=== PATIENT | male | born 1975 | race Caucasian/White ===

== ENCOUNTER 2022-08-04 08:17 | Outpatient (OUT) | payer OTHER, SELFPAY ==
[2022-08-04 08:56] LABS: Basophils Absolute Auto 0.1 10^3/uL (0.0-0.1); Basophils Percent Auto 0.9 % (0.2-2.0); Eosinophils Absolute Auto 0.2 10^3/uL (0.0-0.7); Eosinophils Percent Auto 2.8 % (0.9-7.0); Hematocrit 46.5 % (42.0-54.0); Hemoglobin 15.5 g/dL (14.0-18.0); Immature Granulocytes Abs Auto 0.03 10^3/uL (0.00-0.03); Immature Granulocytes Pct Auto 0.5 % (0.0-0.5); Lymphocytes Absolute Auto 1.7 10^3/uL (1.2-3.8); Lymphocytes Percent Auto 30.5 % (20.5-60.0); Mean Corpuscular HGB Conc 33.3 g/dL (29.9-35.2); Mean Corpuscular Hemoglobin 29.9 pg (25.9-34.0); Mean Corpuscular Volume 89.8 fL (80.0-94.0); Mean Platelet Volume 9.8 fL (9.5-13.5); Monocytes Absolute Auto 0.4 10^3/uL (0.3-0.8); Monocytes Percent Auto 7.8 % (1.7-12.0); Neutrophils Absolute Auto 3.3 10^3/uL (1.4-6.5); Neutrophils Percent Auto 57.5 % (43.0-75.0); Platelet Count 250 10^3/uL (150-450); Red Blood Count 5.18 10^6/uL (4.70-6.10); Red Cell Distribution Width 11.9 % (11.0-15.0); White Blood Count 5.7 10^3/uL (4.0-11.0)
[2022-08-04 09:11] LABS: Alanine Aminotransferase 38 U/L (16-63); Albumin Globulin Ratio 0.9; Albumin Level 3.7 g/dL (3.4-5.0); Alkaline Phosphatase 78 U/L (46-116); Aspartate Amino Transferase 20 U/L (15-37); BUN Creatinine Ratio 12.2; Bilirubin Total 0.7 mg/dL (0.2-1.0); Calcium 8.9 mg/dL (8.5-10.1); Carbon Dioxide 29.5 mmol/L (21.0-32.0); Chloride 104 mmol/L (98-107); Chol HDL Ratio 4.6; Cholesterol 184 mg/dL (<=200); Estimated GFR (African America >60 (>=60); Estimated GFR (Non-African Ame >60 (>=60); Globulin 3.9 g/dL; Glucose 102 mg/dL (74-106); HDL Cholesterol 40 mg/dL (40-60); Potassium 4.5 mmol/L (3.5-5.1); Sodium 139 mmol/L (136-145); Total Protein 7.6 g/dL (6.4-8.2); Triglycerides 95 mg/dL (<=150)
== END 2022-08-04 08:18 ==
LOC: LAB 08:20
PROVIDERS: PCP Internal Medicine; Visit Provider Internal Medicine
DX: Z00.00 Encounter for general adult medical examination without abnormal findings (principal)
CPT/HCPCS: 36415; 80053; 80061; 85025

== ENCOUNTER 2023-07-23 09:01 | Outpatient (OUT) | payer OTHER, BC, SELFPAY ==
[2023-07-23 09:42] LABS: Basophils Absolute Auto 0.1 10^3/uL (0.0-0.1); Basophils Percent Auto 1.2 % (0.2-2.0); Eosinophils Absolute Auto 0.1 10^3/uL (0.0-0.7); Eosinophils Percent Auto 2.7 % (0.9-7.0); Hematocrit 44.1 % (42.0-54.0); Hemoglobin 14.6 g/dL (14.0-18.0); Immature Granulocytes Abs Auto 0.03 10^3/uL (0.00-0.03); Immature Granulocytes Pct Auto 0.6 % (0.0-0.5); Lymphocytes Absolute Auto 1.8 10^3/uL (1.2-3.8); Lymphocytes Percent Auto 34.2 % (20.5-60.0); Mean Corpuscular HGB Conc 33.1 g/dL (29.9-35.2); Mean Corpuscular Hemoglobin 29.9 pg (25.9-34.0); Mean Corpuscular Volume 90.4 fL (80.0-94.0); Mean Platelet Volume 9.7 fL (9.5-13.5); Monocytes Absolute Auto 0.5 10^3/uL (0.3-0.8); Monocytes Percent Auto 8.8 % (1.7-12.0); Neutrophils Absolute Auto 2.7 10^3/uL (1.4-6.5); Neutrophils Percent Auto 52.5 % (43.0-75.0); Platelet Count 253 10^3/uL (150-450); Red Blood Count 4.88 10^6/uL (4.70-6.10); Red Cell Distribution Width 11.7 % (11.0-15.0); White Blood Count 5.1 10^3/uL (4.0-11.0)
[2023-07-23 12:25] LABS: Alanine Aminotransferase 35 U/L (16-63); Albumin Level 3.7 g/dL (3.4-5.0); Alkaline Phosphatase 75 U/L (46-116); Anion Gap 12.5; Aspartate Amino Transferase 20 U/L (15-37); BUN Creatinine Ratio 12.6; Bilirubin Total 0.7 mg/dL (0.2-1.0); Carbon Dioxide 29.3 mmol/L (21.0-32.0); Chloride 105 mmol/L (98-107); Chol HDL Ratio 4.1; Cholesterol 173 mg/dL (<=200); Estimated GFR (African America >60 (>=60); Estimated GFR (Non-African Ame >60 (>=60); Globulin 3.6 g/dL; Glucose 97 mg/dL (74-106); HDL Cholesterol 42 mg/dL (40-60); LDL Cholesterol Calculated 115.2 mg/dL; Potassium 4.8 mmol/L (3.5-5.1); Sodium 142 mmol/L (136-145); Total Protein 7.3 g/dL (6.4-8.2); Triglycerides 79 mg/dL (<=150); VLDL CHOLESTEROL 15.8 mg/dL
== END 2023-07-23 09:02 | disposition home or self-care (01) ==
LOC: LAB 09:05
PROVIDERS: PCP Internal Medicine; Visit Provider Internal Medicine
DX: Z00.00 Encounter for general adult medical examination without abnormal findings (principal)
CPT/HCPCS: 36415; 80053; 80061; 85025

== ENCOUNTER 2024-08-27 08:04 | Outpatient (OUT) | payer OTHER, BC, SELFPAY ==
[2024-08-27 08:26] LABS: Hematocrit 45.1 % (42.0-54.0); Hemoglobin 15.2 g/dL (14.0-18.0); Immature Granulocytes Abs Auto 0.04 10^3/uL (0.00-0.03); Immature Granulocytes Pct Auto 0.7 % (0.0-0.5); Lymphocytes Absolute Auto 1.8 10^3/uL (1.2-3.8); Mean Corpuscular HGB Conc 33.7 g/dL (29.9-35.2); Mean Corpuscular Hemoglobin 30.9 pg (25.9-34.0); Mean Corpuscular Volume 91.7 fL (80.0-94.0); Platelet Count 233 10^3/uL (150-450); Red Blood Count 4.92 10^6/uL (4.70-6.10); White Blood Count 5.7 10^3/uL (4.0-11.0)
[2024-08-27 08:47] LABS: Alanine Aminotransferase 27 U/L (16-63); Albumin Globulin Ratio 1.1; Albumin Level 3.7 g/dL (3.4-5.0); Alkaline Phosphatase 68 U/L (46-116); Anion Gap 12.8; Aspartate Amino Transferase 15 U/L (15-37); Blood Urea Nitrogen 12.0 mg/dL (7.0-18.0); Calcium 9.0 mg/dL (8.5-10.1); Carbon Dioxide 29.6 mmol/L (21.0-32.0); Chloride 107 mmol/L (98-107); Cholesterol 170 mg/dL (<=200); Estimated GFR (African America >60 (>=60 mL/min/1.73m^2); Estimated GFR (Non-African Ame >60 (>=60 mL/min/1.73m^2); Globulin 3.3 g/dL; Glucose 97 mg/dL (74-106); HDL Cholesterol 45 mg/dL (40-60); Potassium 4.4 mmol/L (3.5-5.1); Sodium 145 mmol/L (136-145); Total Protein 7.0 g/dL (6.4-8.2); Triglycerides 88 mg/dL (<=150); VLDL CHOLESTEROL 17.6 mg/dL
--- OUTSIDE RECORDS SUMMARY | 2024-08-27 17:59 | XMS_ITS | CCD ---
Author Organization [facility] Care Team Providers Care Guide Dog Mobility Instructor Name Role Phone DR WILBER FELTON Attending Unavailable JOSE FRANCISCO, DR LANGE Consulting Unavailable JOSE FRANCISCO, DR LANGE Primary Care Unavailable JOSE FRANCISCO, DR LANGE Admitting Unavailable Wilber Felton Unavailable Hector Pearce Unavailable DO Wilber Felton Primary Care Provider [phone] MD José Miguel Imtasha Attending Provider Wilber Felton Primary Care Unavailable Asaad Imtasha Attending Unavailable Asaad, Imad Admitting Unavailable Allergies Allergy Classification Reported Allergen(s) Allergy Type Date of Onset Reaction(s) Facility (1 source) patient allergy list reviewed by nurse or physicia Propensity to adverse reactions 9 Comment:Done RuffaloCODY Other Medications Current Medications Medication Drug Class(es) Dates Sig (Normalized) Sig (Original) polyethylene glycol 3350 632700 mg / potassium chloride 2970 mg / sodium bicarbonate 6740 mg / sodium chloride 5860 mg / sodium sulfate 10082 mg powder for oral solution (1 source) Osmotic Laxative Start: 09-08-2022 take 236 g by mouth once daily Golytely 236 GM as directed Orally once daily for 1 days Aug, Active Problems Active Problems Problem Classification Problem Date Documented Da te Episodic/Chronic Other circulatory disease (4 sources) Elevated blood-pressure reading without diagnosis of hypertension; Translations: [Elevated blood pressure reading without diagnosis of hypertension] Onset: 10-13-2010 07-23-2024 Episodic Other circulatory disease (2 sources) Elevated blood-pressure reading, without diagnosis of hypertension; Translations: [Elevated blood pressure reading without diagnosis of hypertension] Episodic Other nutritional; endocrine; and metabolic disorders (3 sources) Body mass index 30+ - obesity; Translations: [Body mass index (BMI) 39.0-39.9, adult] Chronic Other nutritional; endocrine; and metabolic disorders (4 sources) Obesity; Translations: [Other obesity due to excess calories] 07-23-2024 Chronic Other nutritional; endocrine; and metabolic disorders (1 source) Other obesity due to excess calories Chronic Other nutritional; endocrine; and metabolic disorders (1 source) Body mass index (BMI) 39.0-39.9, adult Chronic Other nutritional; endocrine; and metabolic disorders (1 source) Morbid obesity; Translations: [Morbid (severe) obesity due to excess calories] Onset: 07-08-2021 Chronic Other nutritional; endocrine; and metabolic disorders (1 source) Obesity, unspecified; Translations: [Obesity, unspecified] 07-23-2024 Chronic Other screening for suspected conditions (not mental disorders or infectious disease) (5 sources) Encounter for screening for malignant neoplasm of colon; Translations: [Encounter for screening for diseases of the blood and blood-forming organs and certain disorders involving the immune mechanism] Onset: 08-24-2018 Resolved: 07-06-2021 Episodic Residual codes; unclassified (4 sources) Family history of diabetes mellitus; Translations: [Family history of diabetes mellitus] Episodic Unclassified (1 source) Encounter for screening for malignant neoplasm of colon; Translations: [Encounter for screening for malignant neoplasm of colon] Onset: 10-18-2022 Past or Other Problems Problem Classification Problem Date Documented Da te Episodic/Chronic Other non-traumatic joint disorders (3 sources) Shoulder joint pain; Translations: [Joint pain, shoulder region] Onset: 10-13-2010 Episodic Results Test Name Value Interpretation Reference Range Facil ity Fawad 10-18-2022 L - -------- Specimen: [id number] Received: 10/18/22 Status: NORBERTO Mendieta Num: [id number] Spec Type: Surgical Subm Dr: Skye Valdez MD Tissues: A Colon Biopsy (POLYP ASCENDING COLON) Procedures: HE/2, Gross/Micro L4 -------- Age/ Patient Sex Location Account Attending Physician -------- Jose Angel Miller /M [id number] Skey Valdez MD -------- SPEC NUM: [id number] RECD: 10/18/22 STATUS: NORBERTO MENDIETA NUM: [id number] NARENDRA: 10/18/22-[address] [facility] [address]: Skye Valdez MD ENTERED: 10/18/[address] [facility] [address]: AARTI TYPE: Surgical DEPT: S ENTERED BY: [id number] RECV BY: [id number] ORDERED: HE/2, Gross/Micro L4 ORDERED: HE/2, Gross/Micro L4 Pathological Diagnosis Polyp, Colon, Biopsy: Tubular Adenoma. - Negative For High Grade Dysplasia And Malignancy. Clinical Information Screening Gross Description Received in formalin labeled with the patient's name, date of and ascending colon polyp is one oneal tissue measuring 0.6 x 0.3 x 0.2 cm. Entirely submitted in one cassette labeled A1. Microscopic Description Two H E slides reviewed. The microscopic examination confirms the diagnosis. CPT Codes 10631 -------- -------- Specimen: [id number] Received: 10/18/22 Status: NORBERTO Anam Num: [id number] Spec Type: Surgical Subm Dr: Skye Valdez MD Tissues: A Colon Biopsy (POLYP ASCENDING COLON) Procedures: Terell MURCIA/Dinora L4 -------- Patient: Jose Angel Miller [id number] (Continued) -------- Signed (signature on file) Shalonda Joiner MD 10/26/22 [id number] Normal [facility] CBC AUTO DIFFon 10-06-2021 BASO # 0.1 103/ul Normal 0.0-0.1 [facility] Comment on above: Performed By: #### C BC #### [facility] [address] [place] [address] Dr. Hardeep Sinha Basophils/100 WBC (Bld) 1.0 % Normal 0.2-2.0 [facility] Comment on above: Performed By: #### C BC #### [facility] [address] [place] [address] Dr. Hardeep Sinha EO # 0.2 103/ul Normal 0.0-0.7 [facility] Comment on above: Performed By: #### C BC #### [facility] [address] [place] [address] Dr. Hardeep Sinha Eosinophils/100 WBC (Bld) 2.5 % Normal 0.9-7.0 [facility] Comment on above: Performed By: #### C BC #### [facility] [address] [place] [address] Dr. Hardeep Sinha Erythrocyte distribution width (RBC) [Ratio] 11.8 % Normal 11.0-15.0 [facility] Comment on above: Performed By: #### C BC #### [facility] [address] [place] [address] Dr. Hardeep Sinha Hematocrit (Bld) [Volume fraction] 45.0 % Normal 42.0-54.0 [facility] Comment on above: Performed By: #### C BC #### [facility] [address] [place] [address] Dr. Hardeep Sinha Hemoglobin (Bld) [Mass/Vol] 14.9 g/dL Normal 14.0-18.0 [facility] Comment on above: Performed By: #### C BC #### [facility] [address] [place] [address] Dr. Hardeep Sinha IG # 0.03 10e3/ul Normal 0.00-0.03 [facility] Comment on above: Performed By: #### C BC #### [facility] [address] [place] [address] Dr. Hardeep Sinha IG % 0.5 % Normal 0.0-0.5 [facility] Comment on above: Performed By: #### C BC #### [facility] [address] [place] [address] Dr. Hardeep Sinha LYMPH # 1.9 103/ul Normal 1.2-3.8 [facility] Comment on above: Performed By: #### C BC #### [facility] [address] [place] [address] Dr. Hardeep Sinha Lymphocytes/100 WBC (Bld) 32.0 % Normal 20.5-60.0 [facility] Comment on above: Performed By: #### C BC #### [facility] [address] [place] [address] Dr. Hardeep Sinha MANUAL DIFF REQ NO Normal [facility] Comment on above: Performed By: #### C BC #### [facility] [address] [place] [address] Dr. Hardeep Sinha MCH (RBC) [Entitic mass] 30.0 pg Normal 25.9-34.0 [facility] Comment on above: Performed By: #### C BC #### [facility] [address] [place] [address] Dr. Hardeep Sinha MCHC (RBC) [Mass/Vol] 33.1 g/dL Normal 29.9-35.2 [facility] Comment on above: Performed By: #### C BC #### [facility] [address] [place] [address] Dr. Hardeep Sinha MCV (RBC) [Entitic vol] 90.7 fL Normal 80.0-94.0 [facility] Comment on above: Performed By: #### C BC #### [facility] [address] [place] [address] Dr. Hardeep Sinha MONO # 0.5 103/ul Normal 0.3-0.8 [facility] Comment on above: Performed By: #### C BC #### [facility] [address] [place] [address] Dr. Hardeep Sinha Monocytes/100 WBC (Bld) 8.7 % Normal 1.7-12.0 [facility] Comment on above: Performed By: #### C BC #### [facility] [address] [place] [address] Dr. Hardeep Sinha NEUT # 3.4 103/ul Normal 1.4-6.5 [facility] Comment on above: Performed By: #### C BC #### [facility] [address] [place] [address] Dr. Hardeep Sinha Neutrophils/100 WBC (Bld) 55.3 % Normal 43.0-75.0 [facility] Comment on above: Performed By: #### C BC #### [facility] [address] [place] [address] Dr. Hardeep Sinha Platelet mean volume (Bld) [Entitic vol] 9.7 fL Normal 9.5-13.5 [facility] Comment on above: Performed By: #### C BC #### [facility] [address] [place] [address] Dr. Hardeep Sinha PLT 243 103/ul Normal 150-450 [facility] Comment on above: Performed By: #### C BC #### [facility] [address] [place] [address] Dr. Hardeep Sinha RBC 4.96 106/ul Normal 4.70-6.10 [facility] Comment on above: Performed By: #### C BC #### [facility] [address] [place] [address] Dr. Hardeep Sinha WBC 6.1 103/ul Normal 4.0-11.0 [facility] Comment on above: Performed By: #### C BC #### [facility] [address] [place] [address] Dr. Hardeep Sinha LIPID PROFILEon 10-06-2021 CHOL-HDL RATIO NORM SEE BELOW Normal [facility] Comment on above: Result Comment: 3.3 - 4.4 LOW RISK 4.4 - 7.1 AVERAGE RISK 7.1 - 11.0 MODERATE RISK >11.0 HIGH RISK Performed By: #### L IPID, CMP #### [facility] [address] [place] [address] Dr. Hardeep Sinha Cholesterol [Mass/Vol] 170 mg/dL Normal <=200 [facility] Comment on above: Performed By: #### L IPID, CMP #### [facility] [address] [address] [address] Hardeep Sinha Cholesterol in HDL [Mass/Vol] 34 mg/dL Critically low 40-60 [facility] Comment on above: Performed By: #### L IPID, CMP #### [facility] [address] [address] [address] Hardeep Sinha Cholesterol in LDL [Mass/Vol] 98.2 mg/dL Normal [facility] Comment on above: Performed By: #### L IPID, CMP #### [facility] [address] [address] [address] Hardeep Sinha Cholesterol.total/ Cholesterol in HDL [Mass ratio] 5.0 {ratio} Normal [facility] Comment on above: Performed By: #### L IPID, CMP #### [facility] [address] [address] [address] Hardeep Sinha HDL NORMAL > or = 60 mg/dl - LO W CARDIOVASCULAR RISK <40 mg/dl - HIGH CARDIOVASCULAR RISK Normal [facility] Comment on above: Performed By: #### L IPID, CMP #### [facility] [address] [place] [address] Dr. Hardeep Sinha LDL CALC NORMAL SEE BELOW Normal [facility] Comment on above: Result Comment: <100 mg/dl OPTIMAL 100 - 129 mg/dl NEAR OR ABOVE OPTIMAL 130 - 159 mg/dl BORDERLINE HIGH 160 - 189 mg/dl HIGH >190 mg/dl VERY HIGH Performed By: #### L IPID, CMP #### [facility] [address] [address] [address] Hardeep Sinha Triglyceride [Mass/Vol] 189 mg/dL Critically high <=150 [facility] Comment on above: Performed By: #### L IPID, CMP #### [facility] [address] [address] [address] Hardeep Sinha VLDL CALC 37.8 mg/dL Normal [facility] Comment on above: Performed By: #### L IPID, CMP #### [facility] [address] [address] [address] Hardeep Sinha PROF 14(COMP METB)on 022 Albumin [Mass/Vol] 3.9 g/dL Normal 3.4-5.0 [facility] Comment on above: Performed By: #### L IPID, CMP #### [facility] [address] [address] [address] Hardeep Sinha Albumin/Globulin [Mass ratio] 1.1 {ratio} Normal [facility] Comment on above: Performed By: #### L IPID, CMP #### [facility] [address] [address] [address] Hardeep Sinha ALP [Catalytic activity/Vol] 77 U/L Normal 46-116 [facility] Comment on above: Performed By: #### L IPID, CMP #### [facility] [address] [place] [address] Dr. Hardeep Sinha ALT [Catalytic activity/Vol] 34 U/L Normal 16-63 [facility] Comment on above: Performed By: #### L IPID, CMP #### [facility] [address] [address] [address] Hardeep Sinha Anion gap [Moles/Vol] 11.6 mmol/L Normal [facility] Comment on above: Performed By: #### L IPID, CMP #### [facility] [address] [place] [address] Dr. Hardeep Sinha AST [Catalytic activity/Vol] 15 U/L Normal 15-37 [facility] Comment on above: Performed By: #### L IPID, CMP #### [facility] [address] [address] [address] Hardeep Sinha Bilirubin [Mass/Vol] 0.6 mg/dL Normal 0.2-1.0 [facility] Comment on above: Performed By: #### L IPID, CMP #### [facility] [address] [address] [address] Hardeep Sinha Calcium [Mass/Vol] 8.9 mg/dL Normal 8.5-10.1 [facility] Comment on above: Performed By: #### L IPID, CMP #### [facility] [address] [address] [address] Hardeep Sinha Chloride [Moles/Vol] 106 mmol/L Normal 98-107 [facility] Comment on above: Performed By: #### L IPID, CMP #### [facility] [address] [address] [address] Hardeep Sinha CO2 [Moles/Vol] 26.9 mmol/L Normal 21.0-32.0 [facility] Comment on above: Performed By: #### L IPID, CMP #### [facility] [address] [address] [address] Hardeep Sinha Creatinine [Mass/Vol] 0.95 mg/dL Normal 0.70-1.30 [facility] Comment on above: Performed By: #### L IPID, CMP #### [facility] [address] [place] [address] Dr. Hardeep Sinha EGFR-AF SWAZI >60 Normal >=60 [facility] Comment on above: Performed By: #### L IPID, CMP #### [facility] [address] [address] [address] Hardeep Sinha EGFR-NON AF SWAZI >60 Normal >=60 [facility] Comment on above: Performed By: #### L IPID, CMP #### [facility] [address] [place] [address] Dr. Hardeep Sinha Globulin (S) [Mass/Vol] 3.5 g/dL Normal [facility] Comment on above: Performed By: #### L IPID, CMP #### [facility] [address] [address] [address] Hardeep Sinha Glucose [Mass/Vol] 102 mg/dL Normal 74-106 [facility] Comment on above: Performed By: #### L IPID, CMP #### [facility] [address] [address] [address] Hardeep Sinha Potassium [Moles/Vol] 4.5 mmol/L Normal 3.5-5.1 [facility] Comment on above: Performed By: #### L IPID, CMP #### [facility] [address] [address] [address] Hardeep Sinha Protein [Mass/Vol] 7.4 g/dL Normal 6.4-8.2 [facility] Comment on above: Performed By: #### L IPID, CMP #### [facility] [address] [address] [address] Hardeep Sinha Sodium [Moles/Vol] 140 mmol/L Normal 136-145 [facility] Comment on above: Performed By: #### L IPID, CMP #### [facility] [address] [address] [address] Hardeep Sinha Urea nitrogen [Mass/Vol] 11.0 mg/dL Normal 7.0-18.0 [facility] Comment on above: Performed By: #### L IPID, CMP #### [facility] [address] [address] [address] Hardeep Sinha Urea nitrogen/Creatinin e [Mass ratio] 11.6 mg/mg Normal [facility] Comment on above: Performed By: #### L IPID, CMP #### [facility] [address] [address] [address] Hardeep Sinha Lab Reportson 02-21-2021 Lab Reports [id number] Normal [facility] Ambulatory Clinical Summaryo n 12-31-2020 Ambulatory Clinical Summary {[id number] Normal [facility] Patient Educationon 01-01-20 21 Patient Education Nutrition BMI for Adults Body mass index (BMI) is a number that is calculated from a person's weight and height. BMI may help to estimate how much of a person's weight is composed of fat. BMI can help identify those who may be at higher risk for certain medical problems. How is BMI used with adults? BMI is used as a screening tool to identify possible weight problems. It is used to check whether a person is obese, overweight, healthy weight, or underweight. How is BMI calculated? BMI measures your weight and compares it to your height. This can be done either in [place] ([place] or metric measurements. Note that charts are available to help you find your BMI quickly and easily without having to do these calculations yourself. To calculate your BMI in [place] measurements, your health care provider will: 1. Measure your weight in pounds (lb). 2. Multiply the number of pounds by 703. ? For example, for a person who weighs 180 lb, multiply that number by 703, which equals 126,540. 3. Measure your height in inches (in). Then multiply that number by itself to get a measurement called inches squared. ? For example, for a person who is 70 in tall, the inches squared measurement is 70 in x 70 in, which equals 4900 inches squared. 4. Divide the total from Step 2 (number of lb x 703) by the total from Step 3 (inches squared): 126,540 ? 4900 = 25.8. This is your BMI. To calculate your BMI in metric measurements, your health care provider will: 1. Measure your weight in kilograms (kg). 2. Measure your height in meters (m). Then multiply that number by itself to get a measurement called meters squared. ? For example, for a person who is 1.75 m tall, the meters squared measurement is 1.75 m x 1.75 m, which is equal to 3.1 meters squared. 3. Divide the number of kilograms (your weight) by the meters squared number. In this example: 70 ? 3.1 = 22.6. This is your BMI. How is BMI interpreted? To interpret your results, your health care provider will use BMI charts to identify whether you are underweight, normal weight, overweight, or obese. The following guidelines will be used: ? Underweight: BMI less than 18.5. ? Normal weight: BMI between 18.5 and 24.9. ? Overweight: BMI between 25 and 29.9. ? Obese: BMI of 30 and above. Please note: ? Weight includes both fat and muscle, so someone with a muscular build, such as an athlete, may have a BMI that is higher than 24.9. In cases like these, BMI is not an accurate measure of body fat. ? To determine if excess body fat is the cause of a BMI of 25 or higher, further assessments may need to be done by a health care provider. ? BMI is usually interpreted in the same way for men and women. Why is BMI a useful tool? BMI is useful in two ways: ? Identifying a weight problem that may be related to a medical condition, or that may increase the risk for medical problems. ? Promoting lifestyle and diet changes in order to reach a healthy weight. Summary ? Body mass index (BMI) is a number that is calculated from a person's weight and height. ? BMI may help to estimate how much of a person's weight is composed of fat. BMI can help identify those who may be at higher risk for certain medical problems. ? BMI can be measured using [place]hi measurements or metric measurements. ? To interpret your results, your health care provider will use BMI charts to identify whether you are underweight, normal weight, overweight, or obese. This information is not intended to replace advice given to you by your health care provider. Make sure you discuss any questions you have with your health care provider. Document Released: 10/17/2004 Document Revised: 01/18/2018 Document Reviewed: 12/19/2017 [employer] Patient Education ? 2019 [employer]. [facility] Urology Office/Clinic Noteon 12-31-2020 Urology Office/Clinic Note Chief Complaint PO vas HPI Staff 2 week PO vas pt. states his stitches have fallen out, denies any swelling or pain Dysuria: no Incomplete bladder emptying: no Hematuria: no Frequency: no Urgency: no Nocturia: no Stream: good stream Leaking: no Post void dripping: no Wearing pads/ Depends: no Urge incontinence: no Stress incontinence: no Incontinence without Sensory Awareness: no Abdominal pain: no Flank pain: no Sexual complaints: no History of Present Illness Tests Reviewed: Reviewed UA. I have reviewed the previous health record information and history for this patient from Dr. Stringer I have reviewed and verified the staff HPI to be accurate for this encounter. There have been no associated fever, chills, flank pain, or blood in the urine. Denies any urinary infections since last encounter. Review of Systems ROS - Provider Constitutional: denies weight loss, denies hot flashes. Eyes: denies eye problems. Gastrointestinal: denies nausea, denies vomiting. Cardiovascular: denies chest pain or angina. Integumentary: no dryness Musculoskeletal: denies musculoskeletal symptoms. ENMT: denies otolaryngeal symptoms. Respiratory: no shortness of breath. Heme/Lymph: denies easy bleeding tendency, denies easy bruising tendency. Psychiatric: no confusion, no anxiety. Genitourinary: denies dysuria, denies hematuria, denies discharge, denies urinary frequency, denies urinary hesitancy, denies nocturia, denies incontinence, denies genital sores, denies decreased libido, and denies erectile dysfunction. Physical Exam Vitals & Measurements HT: 177.0 cm HT: 177 cm WT: 121.0 kg WT: 121 kg BMI: 38.62 General Appearance: alert, no distress, well nourished, well developed male. Genitourinary: incision site healing well, no sign of infection scrotum, normal testes, normal urethra, normal epididymis, s/p PO vasectomy vas deferens/spermatic cord. Assessment/Plan 1. S/P vasectomy (Z98.52: Vasectomy status) S/P Vasectomy 12/09/2020. Pathology report shows Lt. and Rt. Vas Def. He is aware that he is not sterile until he has a negative semen analysis which will be checked after about two months and after 20-30 ejaculations. He should deliver the semen specimen to the lab within 30 min. of ejaculation and he will call one week later to get the results. Patient is healing well. No real issues after his vasectomy but he has had occasional pain when he is lifting up to 80 pounds. He knows he is not sterile until he gets a negative sample and he will call the office if he has not received a report within 1 week of his delivery of his semen sample. Follow-up With When Contact Information SIOMARA YOUNG, Kurt Rust, URL Only if needed [address] [place] [id number]- Additional Instructions: Patient Education BMI for Adults Yamile Duran, personally scribed for Dr. Stringer on 12/31/2020 08:19:08. . Documentation recorded by the Yamile graf, accurately reflects the services(s) I performed and decisions made by me. Authenticated by Dr. Stringer on 12/31/2020 08:22:03. Problem List/Past Medical History Ongoing Encounter for vasectomy S/P vasectomy Historical No qualifying data Procedure/Surgical History Vasectomy (12/10/2020), Tonsillectomy. Medications Revloc 325 mg-5 mg oral tablet, 1 tab(s), Oral, q6hr, PRN Valium 10 mg Tab, 10 mg= 1 tab(s), Oral, As Directed, PRN Allergies No Known Medication Allergies Social History Tobacco Former smoker, quit more than 30 days ago Tobacco Use:. Cigarettes, 12/31/2020 Family History Diabetes: Father. Normal [facility] Comment on above: Result Comment: Elec tronically Signed By: Kurt STRINGER MD\.br\Date and Time Signed: 12/31/20 08:22 EST\.br\Electronically Co-Signed By: Yamile Santos MA\.br\Date and Time Co-Signed: 12/31/20 08:19 EST Coding Summary.on 12-29-2020 Coding Summary. CD:[id number] G h0bWw+PGhlYWQ+DY6NCVP kX35dhIPegW3VK0xPIZ1S VCDDLBQZBY1CPV5cxVB2O CcpZ3KawgOy QcowxTGeFT84AIr8YVH1h XkcUUefsS3ghOJjC8q8Cy SqEQ86qI22WLjgGFTeVxI 3LjZpbjsgbWFy M8urTgRilEKwXeh+PHRhY mxlIHdpZHRoPScxMDAlJy JpoHuqYT8mEa0lBYRgOFH vbGxhcHNlOiBj f5jbRHHxMFyyKU8otFomC 2ApqQM1VLZce1g7Dl85jS I+TNWwUKL9hDmaHUigj26 0UbIcu3ocRUM2 lDAyVZwnMUJ5R60di7M5C NNzWICpJLX4bYT9qN0pwB nmgyrhF9PkrDNcHhE0TII 6xSGuyG9iiKxs heyfyE3wMus+X92LZU2NU CSDYX4IElm5S1KhOvxyiC I+SN82ASAiDC28jAKgyFS da1osvDo7VwCw DMNiOYZ3wJouRZybo9ZmT ZQvF44rjFKvy5N8RQEvqF jljEUvAhScbCY1xJ5xPMp kjdqxi3ototxq Bazkh1gbcf02pM60L51pM AcnIHGlKOA6UGJzVDIvbI myjr1daN8tCx8+HPtnp9b dz1wblLa7JxKj HUFwfaGqtZvgJUA6z7JbE u07K8UstWifu9WgHgy6bb 40bRAih8C5eHO4HMfaQFT fqD5bXMvuIxH6 OZAhBeBugM97fGAbQGccV o9hzXbxyAmxXK0yFCNmcl jcDQYpvH5uLLNpbPLjyZc tEA6gUGQbuwis f278YxAoELK7EKAsbNTbK 0PppN3eYvAmNKXiLFIiO6 CqwZDrQNabC825UIcuYqK 8RVVxgfTyR2Zv FSYipEfeVvQ1j7U4Yp8Md 4WxjxyrKZA9RVueAVCuBv VdQaSbDuH3X6ZaPrl3GDZ voZidFG0vK7Qb XNVawoibohedcOL2GCIbY FOalN15aAGgWCpsAu4oh3 E6c787MTPmVXFhoP05Wu1 udDogMTBwdCBU iY2feeeyi1ybjeskWtKrQ SEySQy9LQx8DOKjuPqwFr GrAOW9GwN6FGT6mJZamD2 pnMkmmpvngJ4x Oyc+P76reH6nAVS1ZSR8j kufTVPnacHhVW37BU45G9 RyPjwvdGFibGU+PGRpdiB hgDqeFX5jFnPm g5umk6JiTEmzU5BvHPZdS HbbDvx0LKTeXED6wJO1fX 3iRTYjWXocr1R0fHL5H1J zwpUhxk1zt4ks MAKyPLhyI34wyKExq3J7B NMxuMW8HEFzqPogMcGfwC 93Oyc+UQFbkIeuh3HsYeg lv5nct3chjFi7 YsIeZJIrubHqnNxrVUR2y 5BbPx81V42zWMcuZXLrVN UoQSXuJKPexQjhvg5tzW9 wIi8+PGNvbCB3 pGS0iN0iUJGdXkQ2GSvfS 710TwNqpMKyDgshp4fbj7 fumXg3WdHdNVOeetEfeNv mUKL0k7WpBw37 T09kDPysTLTaIDKeQSEjG TEuhKvodk5tpH9gHw4+PC 8mm9ykby74hG08iPI+PHR yMPP7nGfhZYpc KJSidP3qDHriLeE1AURcV xBhvC23jBYzWBvqLc3wjL axtWupOL7bYZNbqsqeo80 2LyUgm6aqIVTb lJIxSNgeHOF8D53by2U0H IJtKMOgQJU4aNA8tX8doV lnbjogbGVmdDsgdmVydGl sFNyiWMpqI833 IHRvcDsnPlBhdGllbnQgT dHvBIm0U1IqOrc4FDHidB wtID1hsEOfAMtzRd2zdBj gnPybVC6xSSKv ytjcp160MnGvq9fnWMUwe QFqMKsgSLO6N01vy3I4CZ AcFMMvFAV6vVE7mI0wnVt nbjogbGVmdDsg jhXmiXlcTRomQIexW667M HRvcDsnPkJpcnRoIERhdG R5VW83QR83rNDls0J2iYD 8J2GrNSBmdnqx bcghmNT0OEJrJWSqcO39R y7kkTlxIj8dGNQiXNO4TO UxbOPjO7UllN3uVxNtSQT nPWHeG1TcnGUt OMmvH197HCrjPcG4DAFcg aBqU5OiGHVarPbmUwW8y7 O2Bd1KO2X3OA86YI83jJX jq2D8vFC0S4Aw GEWyxqcmqyyvnNX3DKZzF XIqpP08Ys3ukEpfTn6qOS FuMWO7OPGvsSOtC0AmgA4 yOiAjMDAwMDAw P9AhkSXbJLfpZ824XXzbU jK5TPLwpcShF7KrVYJgcA tqKcA2q1P1Kk2XUPd9BI3 5OT59uWTtb2W1 lND3W2YgVRVmddiztlscn XB6IQTkSDWfpK73Is7qsC vkLj7uNPSlLQH5FIEiuMH sD4CsgI6pXhOd SNXtWBKnN5LfyLOxXUynX 480OAgxQxD3KUChmePbI9 XgMEYarOofVbI0r4B6Nt9 EHLDxQB84HCJ2 yBN3RY51CQ06P9FtZlzxj GFibGU+PHRhYmxlIHdpZH RoPScxMDAlJyBzdHlsZT0 kYn1iTMQnACCt aAhwqMTrLlJtj7qqFCHbX NhrGK4vtHbdZ8GppWT6DF Ybr3f3Qv76D90eZ6WafDP +HHHluKB7oGC1 fF9wYqQeJdL0TGauI100U cLfsDDpReswv3uuo6visS o1XbC1CLJnnaOyxJpiVYS 3m0NmWw49W46u IHdpZHRoPSIxNSUiIHZhb Pvdhb0bwV2iKg5+PGNvbC X8rAN2jW8cBbKdKvJ3VSh hW105VfMroNQy Ftlnh5nja1jxlIj6QwZmE TFagsZokPecHWK5r8FsEm 47U5MgfUrji0DdBpy1gc3 6sSAem7G9yYI0 I9EmCHLppaflvZHqfVvbM E6eCROxxycyMASpyL8cGP OlS7l8DrZvCbG5CMuyO0Y hjwW2BNNhgXPf CPzgXEP0X16fc2C6LUKyG JQcGFF3vOU2yU5glYtaid ogbGVmdDsgdmVydGljYWw vOGdbZ876NCVu eOrjZNQeoN5lFDXayBItr AgjEY1gJUDwndxfGoOGZC QrKLEXOZRZJGXPUW13YE1 0lQNup7O6rVJ9 S2CjBJInbidclfuecCD9P ZJjLOYloE89mAPgHThlUn 6yr9E1k104PZWqXSDluS7 0Fl4bjFigEGWn tHKSbH5fdpivr1intgyeS kSnIIFxBRh8YCz3DAIlxS dmRgIsDFQ4YuQ1RYT5kPC cvO1xqVfuaclk tZ7dAbw+LPnjYesgVTu8L zwvdGQ+AIRaYIU1aKmkPS hbZQTscZ2kMAFqL3y1AfX uVnO8FFfwB3Ei BSClniehSg70lP5zLiEnO dR4YYjcX7OzduJ3JIQrfW HjXHndNFR9E50lb8Q6SAC hNWUlMNB0yFV9 pA3odDfoxvnqrNYmzQsob aRxoEmySYkyYLwwN511BB KbqIzaSyN2GDsqBRPnIV3 7ZJ37fHJhw8V1 dRJ0G6SwWDGctilewfupd AJ3VBAoJQWfgI61iWPvRF aiWg2gj3Z9i963ZHPjCXI naO93Qm4noHgq LSTveKISuS5apkzpw0lfb qwmJbSbLQOuDMc9NXd4TC AnbOumKmRdIVH0QsQ0IDI 2cCSwwM7aqRxg hipluV8wIbl+TWFsZTwvd GQ+OIKkGOW2nOrcKHgoXQ OozH5rLECeJ1o9KhBtLzZ 7FEpvH0GlBMDh mptxHk55sR6zFpZzWrL0E NlmS0JgvwM7LPLikHCoWH tjDKM2A94sb9J7UCClYZT mIOA5cWI7jN1v bGlnbjogbGVmdDsgdmVyd XxpTTlxWFgsS401ZLRubI whYgbuHaGHwy9jZY1rXbh vdGQ+FZ98xg88 L3XvYkxiLwx0EPGbZCI2s SM2cW3qARJoCRmut6S9bK H4X4CdmiTnvq0gu7trKVG mTEocG67meIOq b0B6PZLepQD3NCHrwWpaF pMoiO42Nki+PGNvbGdyb3 EoJrcmf9yae2ckxUj4AoV wJSIgdmFsaWdu QPR9k6NjQl55T44dFHclV HRoPSIzMCUiIHZhbGlnbj 8hnQ2hQc0+TEGhyBT3mIL 9tM2cEfErBiY5 WXqqG848HmYfhDJpWxeaj 0cjj4fknJa9ZqWcKHPzij TexVvfSGR6f9JtXn25D9C wsExvi8XzDcv5 vg15qSEhj0S5rJA0E5EyW VRqfgwckLLdnAwhAU9jOG GrftbxJJJuiP4uKSFeG3j 8SdDnUiS8XAxo M0PzdkH2ZQYttGDjDPXfi ETMiT0qecjkr8ryfcpmBh MpTGGoYDl8NNg9DRWgsFw sCaTfQYN0WuC8 ZIX4sCIpvJ0flJxnvrtjd G9wOyc+OSn4v8lqyKOlAB 8azGO6MC33RR31uITtg1M 0kVG2J6QnHYNo ehgjmqeonHU3JSZnKYWsu T95Iv3ffRudQc6zXGTdIT X9TGBneYIsG7OqmY9pJtY nHOPvLHYyA8Ng xGBxEIlaZ165ZPkaFdQ3S IQjowZeD2FbDCHkyBucFc D0s8Z7Xe5CDC42FW63JW3 1cRUjb7Z5nUD7 J5LkOXHjjzmeywrtcRJ8Z YSbBCKbkV83Ey5evPliXz 7wPEHiAZF2VRTbjYLiX0B ajI2pImRlMJGz RMJxS4TkqBTyNPaiP278I MshEkX3YLPnyzCtJ6LtQI JvkAmwJqT2j9C5Wo5JUo8 7PF32QK31rIWc u5F5iOW8T0GlPQRzqygyd almsGA5BLDoNQRqgX50Le 7rpMcsPk2jREXlQUA5MIQ tyFSgA1BifQ7w WtAsIUAvKCAjQ1IqhCSbD VumL700TCzgDyC4EWWqpa LeG6DtPOVyzAejTmT3l2H 0Kq7UMZqgcug9 R3TpZsqxkAZ+WY70PZTcX F90vNMapQDjc3pvzXl2Ra CwMOOqLLP8cYkcYQgda5H fVXHgY49pzGQj c2U6 (more content not included)... Normal [facility] Consent for Procedure/Surger yon 12-13-2020 Consent for Procedure/Surgery [id number]:127 [facility] Ambulatory Clinical Summaryo n 12-10-2020 Ambulatory Clinical Summary {[id number]}CD:[id number] [facility] Patient Educationon 12-11-19 21 Patient Education Urology Vasectomy, Care After This sheet gives you information about how to care for yourself after your procedure. Your health care provider may also give you more specific instructions. If you have problems or questions, contact your health care provider. What can I expect after the procedure? After your procedure, it is common to have: ? Mild pain, swelling, redness, or discomfort in your scrotum. ? Some blood coming from your incisions or puncture sites for one or two days. ? Blood in your semen. Follow these instructions at home: Medicines ? Take empb-ekf-gazpzda and prescription medicines only as told by your health care provider. ? Avoid taking NSAIDs such as aspirin and ibuprofen, because these medicines can make bleeding worse. Activity ? For the first 2 days after surgery, avoid physical activity and exercise that require a lot of energy. Ask your health care provider what activities are safe for you. ? Do not participate in sports or perform heavy physical labor until your pain has improved, or until your health care provider says it is okay. ? Do not ejaculate for at least 1 week after the procedure, or as long as directed. ? You may resume sexual activity 7?10 days after your procedure, or when your health care provider approves. Use a different method of control (contraception) until you have had test results that confirm that there is no sperm in your semen. Scrotal support ? Use scrotal support, such as a jock strap or underwear with a supportive pouch, as needed for one week after your procedure. ? If you feel discomfort in your scrotum, you may remove the scrotal support to see if the discomfort is relieved. Sometimes scrotal support can press on the scrotum and cause or worsen discomfort. ? If your skin gets irritated, you may add some germ-free (sterile), fluffed bandages or a clean washcloth to the scrotal support. General instructions ? Put ice on the injured area: ? Put ice in a plastic bag. ? Place a towel between your skin and the bag. ? Leave the ice on for 20 minutes, 2?3 times a day. ? Check your incisions or puncture sites every day for signs of infection. Check for: ? Redness, swelling, or pain. ? Fluid or blood. ? Warmth. ? Pus or a bad smell. ? Leave stitches (sutures) in place. The sutures will dissolve on their own and do not need to be removed. ? Keep all follow-up visits as told by your health care provider. This is important because you will need a test to confirm that there is no sperm in your semen. Multiple ejaculations are needed to clear out sperm that were beyond the vasectomy site. You will need one test result showing that there is no sperm in your semen before you can resume unprotected sex. This may take 2?4 months after your procedure. ? Do not drive for 24 hours if you were given a sedative to help you relax. Contact a health care provider if: ? You have redness, swelling, or more pain around your incision or puncture site, or in your scrotum area in general. ? You have bleeding from your incision or puncture site. ? You have pus or a bad smell coming from your incision or puncture site. ? You have a fever. ? Your incision or puncture site opens up. Get help right away if: ? You develop a rash. ? You have difficulty breathing. Summary ? After your procedure it is common to have mild pain, swelling, redness, or discomfort in your scrotum. ? Avoid physical activity and exercise that requires a lot of energy for the first 2 days after surgery. ? Put ice on the injured area. Leave the ice on for 20 minutes, 2?3 times a day. ? Do not drive for 24 hours if you were given a sedative to help you relax. This information is not intended to replace advice given to you by your health care provider. Make sure you discuss any questions you have with your health care provider. Document Released: 08/25/2005 Document Revised: 01/18/2018 Document Reviewed: 05/04/2017 [employer] Patient Education ? 2019 [employer]. [facility] Urology Office/Clinic Noteon 12-10-2020 Urology Office/Clinic Note Chief Complaint This is a 45 year old male here for a vasectomy HPI Staff Pt. here for a Vasectomy History of Present Illness There have been no associated fever, chills, flank pain or blood in the urine. Pt. denies any pain/burning with urination at this time. I have reviewed and verified the staff HPI to be accurate for this encounter. I have reviewed the previous health record information and history for this patient from Dr. Stringer. Review of Systems ROS - Provider Constitutional: denies weight loss, denies hot flashes. Eyes: denies eye problems. Gastrointestinal: denies nausea, denies vomiting. Cardiovascular: denies chest pain or angina. Integumentary: no dryness Musculoskeletal: denies musculoskeletal symptoms. ENMT: denies otolaryngeal symptoms. Respiratory: no shortness of breath. Heme/Lymph: denies easy bleeding tendency, denies easy bruising tendency. Psychiatric: no confusion, no anxiety. Genitourinary: denies dysuria, denies hematuria, denies discharge, denies urinary frequency, denies urinary hesitancy, denies nocturia, denies incontinence, denies genital sores, denies decreased libido, and denies erectile dysfunction. Physical Exam Vitals & Measurements HT: 177 cm HT: 177.0 cm WT: 121 kg WT: 121.0 kg BMI: 38.62 Procedure Operative Information Anesthesia Type: Local Procedure: Vasectomy Complications: None Surgical risks, benefits, details of the procedure have been explained to the patient. Full informed consent has been obtained. Intraoperative Information The patient is brought back to the operating room and placed in the supine position. He is prepped appropriately and draped. The skin and vas deferens are then anesthetized and the incision is made and carried down through the scrotal skin down to the level of the vas deferens which has been isolated. The bilateral segmental vasectomy is performed and the proximal and distal ends are ligated, isolated from each other, and allowed to fall back into the scrotal incision. The skin is then closed with interrupted sutures after hemostasis is achieved with electrocautery. Postoperative Information He tolerated the procedure well and is subsequently discharged home on oral antibiotics and with the discharge instructions. Assessment/Plan Will return in 2 weeks for PO vasectomy. 1. Encounter for vasectomy (Z30.2: Encounter for sterilization) Pt. had IO vasectomy today without complications. Pt. to finish abx course. All questions/concerns were discussed. Pt. to call the office if heencounters any issues . Pt. acknowledges understanding. Follow-up With When Contact Information SIOMARA YOUNG, Kurt Rust, ELIZAL In 2 weeks 12/24/2020 EDT [address] [facility] [address] [id number]- Additional Instructions: PO vas Patient Education Vasectomy, Care After I, Jodie Quispe, personally scribed for Dr. Stringer on 12/10/2020 07:58:43. . Documentation recorded by the yohannesibJodie vanegas, accurately reflects the services(s) I performed and decisions made by me. Authenticated by Dr. Stringer on 12/10/2020 08:01:24. Problem List/Past Medical History Ongoing Encounter for vasectomy Historical No qualifying data Procedure/Surgical History Vasectomy (12/10/2020), Tonsillectomy. Medications Revloc 325 mg-5 mg oral tablet, 1 tab(s), Oral, q6hr, PRN Valium 10 mg Tab, 10 mg= 1 tab(s), Oral, As Directed, PRN Allergies No Known Medication Allergies Social History Tobacco Former smoker, quit more than 30 days ago Tobacco Use:. Cigarettes, 12/10/2020 Family History Diabetes: Father. [facility] Comment on above: Result Comment: Elec tronically Signed By: Kurt STRINGER MD\.br\Date and Time Signed: 12/10/20 08:01 EDT\.br\Electronically Co-Signed By: Jodie Quispe\.br\Date and Time Co-Signed: 12/10/20 07:59 EDT Ambulatory Clinical Summaryo n 11-10-2020 Ambulatory Clinical Summary {[id number] [facility] Urology Office/Clinic Noteon 11-10-2020 Urology Office/Clinic Note Chief Complaint New patient for vasectomy consult HPI Staff New patient for vasectomy consult Dysuria: no Incomplete bladder emptying: no Hematuria: no Frequency:no Urgency: no Nocturia: no Stream:good stream Leaking: no Post void dripping: no Wearing pads/ Depends: no Urge incontinence: no Stress incontinence: no Incontinence without Sensory Awareness: no Abdominal pain: no Flank pain: no Sexual complaints: no History of Present Illness Tests Reviewed: Reviewed UA. I have reviewed and verified the staff HPI to be accurate for this encounter. There have been no associated fever, chills, flank pain, or blood in the urine. Review of Systems ROS - Provider Constitutional: denies weight loss, denies hot flashes. Eyes: denies eye problems. Gastrointestinal: denies nausea, denies vomiting. Cardiovascular: denies chest pain or angina. Integumentary: no dryness Musculoskeletal: denies musculoskeletal symptoms. ENMT: denies otolaryngeal symptoms. Respiratory: no shortness of breath. Heme/Lymph: denies easy bleeding tendency, denies easy bruising tendency. Psychiatric: no confusion, no anxiety. Genitourinary: denies dysuria, denies hematuria, denies discharge, denies urinary frequency, denies urinary hesitancy, denies nocturia, denies incontinence, denies genital sores, denies decreased libido, and denies erectile dysfunction. Physical Exam Vitals & Measurements HR: 63(Peripheral) RR: 16 BP: 140/89 HT: 177.0 cm HT: 177 cm WT: 121.0 kg WT: 121 kg BMI: 38.62 General Appearance: alert, no distress, well nourished, well developed male. Head: normocephalic . Eyes: normal orbit and globe. ENMT: normal examination of external ears. Chest: Lungs CTA, respirations non labored. Cardiovascular: regular rate and rhythm. Abdomen: soft, non distended, no tenderness, no mass or organomegaly, no hernia. Genitourinary: normal scrotum, normal testes, normal urethra, normal epididymis, normal vas deferens/spermatic cord. Flank Pain: none. Bladder: nonpalpable. Penis: normal shaft, normal glans. Lymph Nodes: unremarkable palpation of the cervical area. Skin: warm, dry, no bruising. Psychiatric: cooperative, affect appropriate for age, normal judgement, euthymic mood. Assessment/Plan 1. Encounter for vasectomy counseling (Z30.09: Encounter for other general counseling and advice on contraception) Will schedule Vasectomy. The procedural risks, benefits, details, and treatment alternatives of sterilization have been discussed with the patient today. He understands this procedure is considered permanent, even though vasectomy reversals can be performed. There is no guarantee of successful reversal resulting in , however. Risks discussed include bleeding, infection, failure with in about 1:2500, post-vasectomy syndrome (chronic pain in the testicle or scrotum), possible association with prostate cancer development in the future, and erection problems, among others. Despite these risks, he wishes to proceed. He also understands that he is not considered sterile until a negative semen sample has been received after about 2-3 months after the vasectomy. Full informed consent has been obtained. Will order Local anesthesia.k Follow-up No qualifying data available Patient Education Vasectomy I, Oneyda Valdez, personally scribed for Dr. Stringer on 11/10/2020 08:34:37. . Documentation recorded by the scribe, Oneyda Valdez, accurately reflects the services(s) I performed and decisions made by me. Authenticated by Dr. Stringer on 10/27/2020 08:37:17. Problem List/Past Medical History Ongoing No qualifying data Historical No qualifying data Procedure/Surgical History Tonsillectomy. Medications No active medications Allergies No Known Medication Allergies Social History Tobacco Former smoker, quit more than 30 days ago Tobacco Use:. Cigarettes, 11/10/2020 Family History Diabetes: Father. Lab Results Ambulatory Point of Care Results Bilirubin Urine Dipstick: Negative (11/10/20 08:03:00) Blood Urine Dipstick: Negative (11/10/20 08:03:00) Glucose Urine Dipstick: Negative (11/10/20 08:03:00) Ketones Urine Dipstick: Negative (11/10/20 08:03:00) Leukocytes Urine Dipstick: Negative (11/10/20 08:03:00) Nitrite Urine Dipstick: Negative (11/10/20 08:03:00) Protein Urine Dipstick: Negative (11/10/20 08:03:00) Specific [place] Urine Dipstick: >=1.030 (11/10/20 08:03:00) Urine Appearance Urine Dipstick: Clear (11/10/20 08:03:00) Urine Color Urine Dipstick: Yellow (11/10/20 08:03:00) Urobilinogen Urine Dipstick: Normal 0.2-1 EU/dl (11/10/20 08:03:00) pH Urine Dipstick: 5.5 (11/10/20 08:03:00) Normal [facility] Comment on above: Result Comment: Elec tronically Signed By: Kurt STRINGER MD\.br\Date and Time Signed: 11/10/20 08:37 EDT\.br\Electronically Co-Signed By: Oneyda Valdez MA\.br\Date and Time Co-Signed: 11/10/20 08:35 EDT Vital Signs Date Time Vital Sign Value Performing Clinician Facility 07-23-2024 08:31-0400 Body height 177.8 cm [facility] 07-23-2024 08:31-0400 Body mass index (BMI) [Ratio] 38.4 kg/m2 [facility] 07-23-2024 08:31-0400 Body weight 121.56 kg [facility] 07-23-2024 08:31-0400 Diastolic blood pressure 89 mm[Hg] [facility] 07-23-2024 08:31-0400 Heart rate 70 /min [facility] 07-23-2024 08:31-0400 Respiratory rate 12 /min [facility] 07-23-2024 08:31-0400 Systolic blood pressure 139 mm[Hg] [facility] 10-18-2022 12:40-0400 Diastolic blood pressure 84 mm[Hg] DO Wilber Ball Work Phone: [facility] 10-18-2022 12:40-0400 Heart rate 63 /min DO Wilber Ball Work Phone: [facility] 10-18-2022 12:40-0400 Respiratory rate 16 /min DO Wilber Ball Work Phone: [facility] 10-18-2022 12:40-0400 SaO2% (BldA) [Mass fraction] 98 % DO Wilber Ball Work Phone: [facility] 10-18-2022 12:40-0400 Systolic blood pressure 134 mm[Hg] DO Wilber Ball Work Phone: [facility] 10-18-2022 10:48-0400 Body height 177.8 cm DO Wilber Ball Work Phone: [facility] 10-18-2022 10:48-0400 Body temperature 98.8 [degF] DO Wilber Felton Work Phone: [facility] 10-18-2022 10:48-0400 Body weight 111.13 kg DO Wilber Ball Work Phone: [facility] 07-21-2022 09:30-0400 Body height 176.53 cm Wilber Felton Other [facility] Other 07-21-2022 09:30-0400 Body mass index (BMI) [Ratio] 39.76 kg/m2 Wilber Felton Other [facility] Other 07-21-2022 09:30-0400 Body weight 123.92 kg Wilber Felton Other [facility] Other 07-21-2022 09:30-0400 Diastolic blood pressure 104 mm[Hg] Wilber Felton Other [facility] Other 07-21-2022 09:30-0400 Respiratory rate 12 /min Wilber Felton Other [facility] Other 07-21-2022 09:30-0400 Systolic blood pressure 143 mm[Hg] Wilber Felton Other [facility] Other Encounters Encounter Date Encounter Type Care Provider Facility Start: 07-23-2024 End: 07-23-2024 ambulatory [facility] Work Phone: Start: 07-23-2024 End: 07-23-2024 Encounter for general adult medical examination without abnormal findings [facility] Start: 07-23-2024 End: 07-23-2024 Patient encounter procedure [facility] Work Phone: Start: 10-18-2022 Telephone encounter Wilber Felton [facility] Start: 10-18-2022 End: 10-18-2022 Admission to same day surgery center DO Wilber Felton Work Phone: [facility] Work Phone: Start: 10-18-2022 End: 10-18-2022 ambulatory DO Wilber Felton Work Phone: [facility] Work Phone: Start: 08-25-2022 End: 08-25-2022 ambulatory Hector Pearce Other [facility] Other Start: 08-25-2022 Telephone encounter Hector WILLARD [facility] [employer] Start: 07-21-2022 End: 07-21-2022 ambulatory Wilber Felton Other [facility] Other Start: 07-21-2022 Encounter for genera l adult medical examination without abnormal findings Wilber Felton [facility] Start: 07-21-2022 Periodic preventive med est patient 40-64yrs Wilber Felton [facility] Start: 10-07-2021 Encounter for genera l adult medical examination without abnormal findings DR WILBER FELTON [facility] Start: 10-06-2021 End: 10-07-[address] WILBER FELTON Facility:[facility] Start: 10-06-2021 End: 10-07-2021 Encounter for general adult medical examination without abnormal findings DR WILBER FELTON Facility:[facility] Start: 07-08-2021 Adult health examination Wilber Felton Other [facility] Other Procedures Date Procedure Procedure Detail Performing Clinician Start: 10-18-2022 Screening colonoscopy D O Wilber Felton Work Phone: Start: 06-05-2018 End: 07-01-2019 General examination of patient Wilber Felton Other Start: 06-05-2018 End: 07-01-2019 Hyperlipidemia screening Wilber Felton Other Depression screening Cliff Felton Other Plan of Treatment Date Care Activity Detail Author Start: 10-18-2022 [facility] Comprehensive metabo lic 2000 panel - Serum or Plasma [facility] Patient Education Hemorrhoids (D C) Colon Polypectomy (DC) [facility] Work Phone: [facility] Immunizations Immunization Date Immunization Notes Care Provider Fa evon 07-28-2020 COVID-19 Vaccine Pfi zer - Documentation Purposes Only Wilber Felton Other [facility] 07-07-2020 COVID-19 Vaccine Pfi zer - Documentation Purposes Only Wilber Felton Other [facility] 11-10-2010 tetanus and diphther ia toxoids, adsorbed, preservative free, for adult use (5 Lf of tetanus toxoid and 2 Lf of diphtheria toxoid) [facility] 11-10-2010 tetanus toxoid, redu maryjo diphtheria toxoid, and acellular pertussis vaccine, adsorbed Wilber Felton Other [place] [facility] Other Payers Date Payer Category Payer Self-pay [id number] 2019 Unknown [id number] 1975 Unknown [id number] 1959 Private Health Insurance [id number] Private Health Insurance [employer] [id number] Unknown [id number] Social History Date Type Detail Facility Sex Assigned At [facility] Other Start: 10-18-2022 Tobacco smoking stat us TXIS Never smoked tobacco (finding) [facility] Start: 1975 Sex Assigned At Male [facility] Start: 07-23-2024 Sex Male (finding) [facility] Goals Date Patient Goal Desired Activity /State Clinical Notes 11-10-2020 to 10-18-2022 Note Date & Type Note Facility 10-18-2022 History and physical note Note Date/Time October 18, 2022 11:43am [facility] [address] [place] [address] Gastroenterology H&P Signed Patient: Jose Angel Miller MR#: [id number] 730 : 1975 Acct:[id number] Age/Sex: 46 / M Adm Date: 3 Loc: Room: Type: [facility] Attending Dr: Skye Valdez MD Copies to: Wilber Felton,DO Skye Valdez MD~ Date of Service: 10/18/2022 HISTORY & PHYSICAL: Patient's history with special attention to the cardiovascular, pulmonary systems and the current problem was reviewed with the patient immediately prior to the procedure. Present medications and doses reviewed in the EMR. Allergies and pertinent laboratory tests were also reviewedat this time in the EMR. The physical examination, as below, was then performed. Indication, assessment and HPI: 46-year-old man here for screening colonoscopy Family history of GI malignancy? No PHYSICAL EXAMINATION Mouth and Pharynx : Moist mucus membranes, normal dentition Cardiac: Regular rate, regular rhythm Pulmonary: Clear to auscultation bilaterally, no wheezing Neurological: Alert and oriented x3, no focal deficits noted Abdomen: Abdomen soft, non-tender REVIEW OF SYSTEMS Constitutional: Denies malaise, fevers Cardiovascular: Denies chest pain, palpitations Respiratory: Denies shortness of breath, wheezing Gastrointestinal: Per HPI Genitourinary: Denies dysuria, polyuria Musculoskeletal: Denies joint swelling, joint stiffness Neurological: Denies numbness, tingling Integumentary: Denies rashes, skin lesions Endocrine: Denies fatigue, weight loss Written informed consent obtained from the patient. Risks (including but not limited to perforation, infection, bloating, bleeding, need for emergent surgeryand loss of life), benefits and alternatives explained and questions answered. The patient verbalized understanding. Based on history patient is an appropriate candidate for the procedure. Skye Valdez M.D. Documented By: Skye Valdez MD 10/18/221142 Signed By: <Electronically signed by Skye Valdez MD> 10/18/221142 [facility] Work Phone: [phone] [facility] History general Narrative - Reported* Type Description Date Medical History Family history of diabetes ru penn in father Surgical History TONSILLECTOMY AND ADENOIDECTOMY Surgical History VASECTOMY 2020 Surgical History Colonoscopy w/ polypectomy 10/08 22 Hospitalization History SEE SURGICAL HX [facility] Other 06-02-2023 Evaluation note* Encounter Date Diagnosis Assessment Notes Treatment Notes Treatment Clinical Notes Jul, Wellness examination (ICD-10 - Z00.00) Healthy diet and exercise. Reviewed age-appropriate preventive testing recommended. Jul, Elevated BP without diagnosis of hypertension (ICD-10 - R03.0) This patient is instructed to consume a healthy, low-fat, low-salt diet. They are also encouraged to continue exercise to achieve/maintain a normal BMI. Patient is instructed on home BP measurements: - rest for 5 minutes w/o talking- positioned w/ feet on floor and arm supported- average best 2/3 readings w/ goal < 135-85 Jul, Other obesity due to excess calories (ICD-10 - E66.09) This patient has been instructed on a low-fat, high-fiber diet. They are instructed to reduce calories, portion sizes and snacks. It is recommended that they exercise for 30 minutes, 3-5 times weekly. Jul, Body mass index [BMI] 39.0-39.9, adult (ICD-10 - Z68.39) Jul, Colon cancer screening (ICD-10 - Z12.11) Refer for screening coloscopy [facility] Other 09-22-2021 NoteUrology Vasectomy Vasectomy is a procedure in which the tube that carries sperm from the testicle to the urethra (vasdeferens) is tied. It may also be cut. The procedure blocks sperm from going through the vas deferens and penis during ejaculation. This ensures that sperm does not go into the vagina during sex. Vasectomy does not affect your sexual desire or performance, and does not prevent sexually transmitted diseases. Vasectomy is considered a permanent and very effective form of control (contraception). The decision to have a vasectomy should not be made during a stressful situation, such as after the loss of a or a divorce. You and your partner should make the decision to have a vasectomy when you are sure that you do not want children in the future. Tell a health care provider about: ? Any allergies you have. ? All medicines you are taking, including vitamins, herbs, eye drops, creams, and sqta-xfq-sglsrid medicines. ? Any problems you or family members have had with anesthetic medicines. ? Any blood disorders you have. ? Any surgeries you have had. ? Any medical conditions you have. What are the risks? Generally, this is a safe procedure. However, problems may occur, including: ? Infection. ? Bleeding and swelling of the scrotum. ? Allergic reactions to medicines. ? Failure of the procedure to prevent . There is a very small chance that the cut ends of the vas deferens may reconnect (recanalization), meaning that you could still make a woman . ? Pain in the scrotum that continues after healing from the procedure. What happens before the procedure? ? Ask your health care provider about: ? Changing or stopping your regular medicines. This is especially important if you are taking diabetes medicines or blood thinners. ? Taking yptz-smi-juqxriw medicines, vitamins, herbs, and supplements. ? Taking medicines such as aspirin and ibuprofen. These medicines can thin your blood. Do not take these medicines unless your health care provider tells you to take them. ? You may be asked to shower with a germ-killing soap. ? Plan to have someone take you home from the hospital or clinic. What happens during the procedure? ? To lower your risk of infection: ? Your health care team will wash or sanitize their hands. ? Hair may be removed from the surgical area. ? Your scrotum will be washed with soap. ? You will be given one or more of the following: ? A medicine to help you relax (sedative). You may be instructed to take this a few hours before the procedure. ? A medicine to numb the area (local anesthetic). ? Your health care provider will feel (palpate) for your vas deferens. ? To reach the vas deferens, one of two methods may be used: ? A very small incision may be made in your scrotum. ? A punctured opening may be made in your scrotum, without an incision. ? Your vas deferens will be pulled out of your scrotum, and may be: ? Tied off. ? Cut and possibly burned (cauterized) at the ends to seal them off. ? The vas deferens will be put back into your scrotum. ? The incision or puncture opening will be closed with absorbable stitches (sutures). The sutures will eventually dissolve and will not need to be removed after the procedure. The procedure may vary among health care providers and hospitals. What happens after the procedure? ? You will be monitored to make sure that you do not experience problems. ? You will be asked not to ejaculate for at least 1 week after the procedure, or as long as directed. ? You will need to use a different form of contraception for 2?4 months after the procedure, until you have test results confirming that there are no sperm in your semen. ? You may be given scrotal support to wear, such as a jock strap or underwear with a supportive pouch. ? Do not drive for 24 hours if you were given a sedative to help you relax. Summary ? Vasectomy is considered a permanent and very effective form of control (contraception). Theprocedure prevents sperm from being released during ejaculation. ? Your scrotum will be numbed with medicine (local anesthetic) for the procedure. ? After the procedure, you will be asked not to ejaculate for at least 1 week, or for as long as directed. You will also need to use a different form of contraception until your health care provider examines you and finds that there are no sperm in your semen. This information is not intended to replace advice given to you by your health care provider. Make sure you discuss any questions you have with your health care provider. Document Released: 04/28/2003 Document Revised: 08/09/2018 Document Reviewed: 05/04/2017 Elsevier Patient Education ? 2019 [employer] Evaluation [facility]No [facility]Nos[facility] Other Evaluation noteNo assessment information available [facility] Work Phone: Evaluation note* Diagnosis Onset Date Resolution Status Admit Date Elevated BP without diagnosi s of hypertension acute July 23, 2024 8 :19am Obesity acute July 23, 2024 8:19am Screening PSA (prostate specific antigen) acute July 23, 2024 8:19am Wellness examination noneactive July 23, 2024 8:19am [facility] Work Phone: History general Narrative - Reported* Type Description Date Medical History Family history of diabetes ru penn in father Surgical History TONSILLECTOMY AND ADENOIDECTOMY Surgical History VASECTOMY 2020 Hospitalization History SEE SURGICAL HX [place] [facility] Other Hospital Discharge instructions Additional Instructions DISCHARGE INSTRUCTIONS FOR COLONOSCOPY WHAT TO EXPECT: - You may feel full, gassy or cramping after your procedure. In some cases, this may be from a few hours to a day. Walking may help relieve the discomfort. - If you have polyp(s) removed you may note some minor bloody discharge after your first bowel movements. - You should begin to recover from anesthesia within 1 hour of the procedure, however may feel groggy for the next 24 hours. DO's AND DON'Ts: - Call your doctor right away if you have a hard abdomen, severe pain, are passing lots of bright red blood or clots. - Call your doctor if you develop any rashes, hives or difficulty breathing. - Let your doctor know if you have not had a bowel movement by 3 days after your procedure. - If you take 81 mg aspirin for your heart it is safe to resume this medication. - If you take other blood thinner medications your doctor will instruct you when these can safely be resumed. - Do NOT drive for 24 hours. - Do NOT operate machinery such as power tools, lawn mowers, snow blowers, sewing machines, etc. for 24 hours. - Avoid alcoholic beverages and drugs for allergies, nerves, or sleep. - Do NOT stay alone. Do NOT leave your child unattended. - Do NOT make important personal or business decisions or sign any legal documents. - Eat solid foods and drink liquids in smaller amounts than usual until normal appetite returns. If you should experience an upset stomach, liquids high in sugar content (soda, Alejandro-Aid, non-acid juices) are recommended. - You can resume normal activities tomorrow. FOLLOW UP & RECOMMENDATIONS: -Notify the doctor if you have any problems. -Repeat colonoscopy based on polyp pathology -Follow up with PCP. -Office number [phone]. [facility] Work Phone: Reason for referral (narrative)* Reason Referral for screeni ng colonoscopy Diagnosis 1 Colon cancer screeni ng (Z12.11) Referral Organization [facility] linmanjinder Referring Provider First Name Wilber Referring Provider Last Name Jose Francisco Referring Provider Specialty Internal Me dicine Referred Organization [facility] Referred Provider Hector Pearce Referred Address [place],[phone] Referred Provider Specialty Gastroentero logy Referral Priority Routine General Notes Referral for screeni ng colonoscopy in an asymptomatic, low risk patient. He denies change in appetite, weight or bowel habits. He denies N/V, dysphagia or heartburn. He denies melena or hematochezia. There is no first degree relative w/ polyps or CRC [facility] Other Summary Purpose Family History Relationship Condition Age at Onset Recorded Date/T nancy father Diabetes mellitus Unknown grandparent Diabetes mellitus Unknown Relationship Condition Age at Onset Recorded Date/T nancy father Diabetes mellitus Unknown Hypertension Unknown grandparent Diabetes mellitus Unknown Advance Directives Advance Directive Response Recorded Date/ Time Advance Directives No July 15 11:57am Chief Complaint and Reason for Visit Chief Complaint Screening Chief Complaint Admit Date Wellness July 23, 2024 8:19a m Reason for Visit Admit Date Elevated BP without diagnosis of hyperte nsion July 23, 2024 8:19am Obesity July 23, 2024 8:19a m Screening PSA (prostate specific antigen ) July 23, 2024 8:19am Wellness examination July 23, 2024 8:19 am Additional Source Comments (unrecognized sect ion and content) No Status Records FoundNo Status Records FoundNo Status Records Found INFORMATION SOURCE (unrecogn ized section and content) DATE CREATED AUTHOR 04/14/2021 [facility] DATE CREATED AUTHOR AUTHOR'S ORGANIZ ATION 10/12/2021 [facility] DATE CREATED AUTHOR AUTHOR'S ORGANIZ ATION 10/28/2022 [facility] REASON FOR VISIT (unrecogniz ed section and content) Wellness3 attemptsNo Informa tion Care Teams (unrecognized sec tion and content) Team Status: Active Member Role Status Dates Wilber Felton DO Primary Care Provider Active Team Status: Inactive Member Role Status Dates Wilber Felton DO Primary Care Provider Active Skye Valdez MD Attending Provider Active Team Status: Inactive Member Role Status Dates Wilber Felton DO Primary Care Provide r, Attending Provider Active Start: July 23, 2024 End: July 23, 2024 Goals (unrecognized section and content) Goals may be documented in a n alternate section FOR RECORDS PERTAINING TO PATIENTS WHO ARE OR HAVE BEEN ENROLLED IN A CHEMICAL DEPENDENCY/SUBSTANCEABUSE PROGRAM, SOME INFORMATION MAY BE OMITTED. This clinical summary was aggregated from multiple sources. Caution should be exercised in using it in the provision of clinical care. This summary normalizes information from multiple sources, and as a consequence, information in this document may materially change the coding, format and clinical context of patient data. In addition, data may be omitted in some cases. CLINICAL DECISIONS SHOULD BE BASED ON THE PRIMARY CLINICAL RECORDS. [facility] provides no warranty or guarantee of the accuracy or completeness of information in this document.
== END 2024-08-27 08:05 | disposition home or self-care (01) ==
LOC: LAB 08:06
PROVIDERS: PCP Internal Medicine; Visit Provider Internal Medicine
DX: Z00.00 Encounter for general adult medical examination without abnormal findings (principal); Z12.5 Encounter for screening for malignant neoplasm of prostate
CPT/HCPCS: 36415; 80053; 80061; 85025; G0103